=== PATIENT | male | born 1960 | race Asian ===

== ENCOUNTER 2017-04-03 06:12 | Day surgery (SDC) | payer OTHER ==
[2017-04-03] MEDS ORDERED: FENTAnyl 50 MCG/ML VIAL (08:43)
[2017-04-03] MEDS ORDERED: MIDAZOLAM 1 MG/ML 2 ML INJ (08:43)
== END 2017-04-03 12:11 | disposition home or self-care (01) ==
LOC: GIL 06:12
DX: Z12.11 Encounter for screening for malignant neoplasm of colon (principal); D12.3 Benign neoplasm of transverse colon; K64.8 Other hemorrhoids; I10 Essential (primary) hypertension
CPT/HCPCS: 45380; 88305